=== PATIENT | female | born 1965 | race Asian ===

== ENCOUNTER 2020-07-06 15:57 | Emergency (ER) | payer OTHER ==
[~2020-07-06] VITALS: Ht 162.6 cm; Wt 61.2 kg
[2020-07-06 18:45] LABS: Hematocrit 16.3 % (36.0-46.0); Mean Corpuscular Hemoglobin 29.9 pg (28.0-32.0); Mean Corpuscular Hgb Conc. 34.2 g/dL (32.0-36.0); Mean Corpuscular Volume 87.6 fL (80.0-100.0); Red Blood Cells 1.86 10^6/uL (4.0-5.20); Red Cell Distribution Width 16.9 % (11.8-14.3); White Blood Cell 4.5 10^3/uL (4.4-10.8)
[2020-07-06 18:55] LABS: Hemoglobin 5.6 g/dL (12.2-16.2)
[2020-07-06 18:56] LABS: Basophils % (manual) 0 (0.0-2.0); Blast Cells 0; Eosinophils % (manual) 0 (0-7); Metamyelocytes % 0; Myelocytes % 0; Promyelocytes % 0; Reactive Lymphocytes 0
[2020-07-06 18:59] LABS: Calcium 8.1 mg/dL (8.5-10.1); Potassium 3.8 mmol/L (3.5-5.1)
[2020-07-06 19:02] LABS: Albumin 2.7 g/dL (3.4-5.0)
[2020-07-06 19:04] LABS: Total Protein 6.7 g/dL (6.4-8.2)
[2020-07-06] MEDS ORDERED: PIPERACILLIN-TAZOB 3.375GM 100 ML IV ONE (19:30)
[2020-07-06 20:20] LABS: Band Neutrophils % (manual) 2; Lymphocytes % (manual) 48 (10.0-50.0); Monocytes % (manual) 30 (0-12)
[2020-07-06] MEDS ORDERED: VANCOMYCIN 1GM/250ML 250 ML IV ONE (21:45)
[2020-07-06] MEDS ORDERED: SODIUM CHLORIDE 0.9% 1,000 ML IV ONE (22:30)
[2020-07-07 02:25] VITALS: BP 87/46
[2020-07-07 02:30] VITALS: BP 87/43
[2020-07-07 02:45] VITALS: BP 92/57
[2020-07-07 03:00] VITALS: BP 91/71
[2020-07-07 03:35] VITALS: BP 93/63
== END 2020-07-07 04:08 | disposition home or self-care (01) ==
LOC: ER 15:57
DX: T81.49XA Infection following a procedure, other surgical site, initial encounter (principal); A48.0 Gas gangrene; D64.9 Anemia, unspecified; E86.0 Dehydration; F41.8 Other specified anxiety disorders; Z20.822 Contact with and (suspected) exposure to COVID-19; X58.XXXA Exposure to other specified factors, initial encounter; Y93.89 Activity, other specified; Y92.89 Other specified places as the place of occurrence of the external cause; Y99.8 Other external cause status
CPT/HCPCS: 36415; 36430; 71250; 80053; 83605; 85007; 85027; 86850; 86900; 86901; 86920; 87040; 87426; 96365; 96366; 96368; 99291; C9803; J2543; J3370; J7050; P9016; U0003; 96361